=== PATIENT | female | born 1945 | race Caucasian/White ===

== ENCOUNTER → 2016-09-17 | Outpatient (CLI) | payer MEDICARE, BC ==
[~2016-09-17] MED LIST: ALLOPURINOL300 MG PO; AUGMENTIN875 M1 PO; CIPRO PO; CIPRO250 M1 PO; FLAGYL PO; FLEXERIL10 M1 PO; HYDROCODON-ACE1 EAC7 PO; LISINOPRIL PO; LISINOPRIL20 MG PO; LORTAB 5-325 M1 EACH; LORTAB 5/500 TA1 TA1 PO; METOPROLOL SUCC50 MG PO; MOTRIN600 MG PO; NORCO1 TAB 10/3 PO; PHENERGAN25 M1 PO; POTASSIUM CHLO10 ME1 PO; PREDNISONE PO; PRILOSEC; TOPROL XL 50 MG50 M1 PO; TOPROL XL 50 MG50 MG; TRAMADOL HCL50 M1 PO; TRIAMTERENE-HC1 EACH PO; TYLENOL #3 PO; TYLENOL325 M1 PO; ZOFRAN ODT4 MG PO; ZOFRAN ODT4 MG/UDTAB PO; ZOFRANODT PO
--- NOTE | ~2016-09-17 | EKG ---
PATIENT: ANKUR PISANO UNIT #: [id number] Ventricular Rate: 66 BPM Atrial Rate: 66 BPM P-R Interval: 162 ms QRS Duration: 100 ms Q-T Interval: 404 ms QTC Calculation(Bezet): 423 ms P [place]: 37 degrees Calculated R [place]: 15 degrees Calculated T [place]: 36 degrees Diagnosis Line: Normal sinus rhythm Diagnosis Line: Normal ECG Diagnosis Line: When compared with ECG of 01-FEB-2016 22:23, Diagnosis Line: No significant change was found Diagnosis Line: Confirmed by ROSS ROCK MD ([id number]) on 09/17/2016 Diagnosis Line: 7:25:24 PM INTERPRETING MD: SHWETA HAQ
--- NOTE | ~2016-09-17 | CR63 ---
[facility] A Service of [facility] RADIOLOGY TEXT RESULTS PATIENT: ANKUR PISANO LOCATION: [facility] : 41 UNIT #: [id number] AGE: [address]: Tc Mcmullen MD SEX: F ORDER DR: [id number] [facility] [address] [place], [place] [address] [id number] O MR#: [id number] Acc #: [id number] NAME: ANKUR PISANO : 1945 SEX: F STUDY DATE/TIME: 09/17/2016 11:10 UNIT: [facility] ROOM: STUDY DESCRIPTION: CR Chest 2 View Attending Physician: Tc Mcmullen M.D. Referring Physician: Tc Mcmullen M.D. Ordering Physician: Tc Mcmullen M.D. Primary Care Physician: Candi Rolon M.D. MEDICAL IMAGING REPORT This report is preliminary unless electronic signature is present EXAM Chest, 09/17/2016; [facility]. HISTORY 71-year-old woman with history of left knee medial and lateral meniscal tears. Patient for left knee arthroscopy. COMPARISON Comparison chest 04/11/2013. FINDINGS PA and lateral chest views show normal cardiac size and configuration. Hilar structures and mediastinal contours are preserved. There is a suggestion of right to left displacement of the tracheas raising the possibility of a right thyroid lobe enlargement or mass. Correlate clinically. Bilateral lungs are expanded and clear. Costophrenic angles are preserved. IMPRESSION 1. Stable chest with no acute finding. 2. Probable right thyroid lobe enlargement or thyroid mass with right to left tracheal deviation noted. Dictated by... Asad Marte M.D. THIS IS AN ELECTRONICALLY VERIFIED REPORT Asad Marte M.D. at 09/18/2016 8:04 AM DEVAUGHN/antoine TD: 09/17/2016 16:21 JOB #: [id number] [facility] A Service of [facility] RADIOLOGY TEXT RESULTS PATIENT: ANKUR PISANO LOCATION: [facility] #: [id number] : 41 UNIT #: [id number] AGE: [address]: Tc Mcmullen MD SEX: F ORDER DR: MEDICAL IMAGING REPORT Page 1 of 1 COPY
[2016-09-17 11:17] LABS: HEMATOCRIT 41.9 % (35.0-45.0); HEMOGLOBIN 13.7 gm/dL (12.0-16.0); MEAN CELL VOLUME 94.5 FL (83-96); MEAN CORPUSCULAR HGB CONC 32.8 g/dL (30-36); MEAN PLATELET VOLUME 7.5 FL (6.5-11.5); RED BLOOD COUNT 4.44 X10e (3.90-5.30); RED CELL DISTRIBUTION WIDTH 14.4 % (11.0-15.5); WHITE BLOOD COUNT 5.2 X10e3 (4.0-10.5)
[2016-09-17 11:19] LABS: URINE APPEARANCE CLEAR; URINE BILIRUBIN NEG (NEG); URINE BLOOD NEG (NEG); URINE COLOR YELLOW; URINE GLUCOSE NEG (NEG); URINE KETONE NEG (NEG); URINE LEUKOCYTE ESTERASE 1+ (NEG); URINE NITRATE NEG (NEG); URINE PROTEIN NEG (NEG); URINE SPECIFIC GRAVITY 1.008 (1.003-1.035); URINE UROBILINOGEN 0.2 MG/DL (NEG)
[2016-09-17 11:20] LABS: URBCS1 AUWI 0-2 /[HPF] (0-2); URINE BACTERIA AUWI NEG (NEGATIVE); URINE SQUAMOUS EPITHELIAL CELL NONE SEEN /[HPF]; UWBCS1 AUWI 0-2 (0-5)
[2016-09-17 11:22] LABS: CULTURE INDICATED? NO
[2016-09-17 11:45] LABS: CALCIUM SERUM 9.3 mg/dL (8.4-10.2); CREATININE SERUM 1.2 mg/dL (0.6-1.4); GLOM FILT RATE Estimated 44.8 mL/min (>60)
== END | disposition home or self-care (01) ==
LOC: CLAB 10:06
PROVIDERS: Orthopaedic Surgery
DX: Z01.818 Encounter for other preprocedural examination (principal); S83.242A Other tear of medial meniscus, current injury, left knee, initial encounter
CPT/HCPCS: 71020; 80048; 81003; 85027; 93005